=== PATIENT | female | born 1950 | race Caucasian/White ===

== ENCOUNTER 2016-11-10 06:10 | Inpatient (IN) | payer OTHER ==
[2016-11-07 16:58] LABS: Urine Bilirubin Negative (Negative); Urine Blood Negative /uL (Negative); Urine Color Yellow (Yellow); Urine Glucose Normal (Normal); Urine Ketone Negative (Negative); Urine Nitrite Negative (Negative); Urine RBC 1 /hpf (0 - 4); Urine Squamous Epithelial Cell FEW /hpf (<5); Urine Urobilinogen Normal (Negative); Urine pH 5.5 (5.0-8.0)
[2016-11-07 17:07] LABS: Basophils # (auto) 0 uL; Basophils % (auto) 0.4 % (0.0-2.0); CONDITION Y; Eosinophils # (auto) 0.1 uL; Hematocrit 40.4 % (36.0-46.0); Hemoglobin 13.6 g/dL (12.2-16.2); Lymphocytes # (auto) 2.3 uL; Lymphocytes % (auto) 27.6 % (10.0-50.0); Mean Corpuscular Hemoglobin 29.7 pg (28.0-32.0); Mean Corpuscular Hgb Conc. 33.7 g/dL (32.0-36.0); Mean Corpuscular Volume 87.9 fL (80.0-100.0); Mean Platelet Volume 9.4 fL (7.4-10.4); Monocytes # (auto) 0.6 uL; Monocytes % (auto) 7.4 % (0.0-12.0); Neutrophils # (auto) 5.3 uL; Neutrophils % (auto) 63.6 % (37.0-80.0); Platelet Count (auto) 337 10^3/uL (140-450); Red Cell Distribution Width 13.3 % (11.6-16.0); White Blood Cell 8.3 10^3/uL (4.4-10.8)
[2016-11-07 17:14] LABS: Albumin 3.9 g/dL (3.4-5.0); BUN/Creatinine Ratio 22.4; Bilirubin, Total 0.3 mg/dL (0.2-1.0); Calcium 9.6 mg/dL (8.5-10.1); Potassium 4.4 mmol/L (3.5-5.1); Total Protein 7.9 g/dL (6.4-8.2)
[2016-11-07 17:22] LABS: INR 0.94 (0.9-1.15); Partial Thromboplastin Time 25.2 sec (22.64-33.71); Prothrombin Time 10.2 sec (9.37-12.3)
[~2016-11-10] VITALS: Ht 165.1 cm; Wt 99.5 kg
[2016-11-10] MEDS ORDERED: ceFAZolin 1GM/50ML D5W 50 ML IV ONE (06:33)
[2016-11-10] MEDS: LIDOCAINE 1% HCL (LOCAL ANESTH.) INJ 20ML MDV ONE ×2 (07:00→10:25)
[2016-11-10] MEDS: BUPIVACAINE 0.25% INJ 50ML VIAL ONE ×2 (07:00→10:25)
[2016-11-10] MEDS ORDERED: LIDOCAINE 1% HCL (LOCAL ANESTH.) INJ 20ML MDV ONE ×2 (07:01→07:04)
[2016-11-10] MEDS ORDERED: MANNITOL FTV 25% 12.5 GM/50 ML 0 ML IV ONE (07:02)
[2016-11-10] MEDS ORDERED: MIDAZOLAM HCL 1MG/1ML-2 ML VIAL ONE (07:28)
[2016-11-10] MEDS ORDERED: METOPROLOL TARTRATE 1MG/1ML-5ML VIAL IV ONE (07:28)
[2016-11-10] MEDS ORDERED: ROCURONIUM 10MG/ML 10ML VIAL IV ONE (07:28)
[2016-11-10] MEDS ORDERED: ONDANSETRON HCL 4 MG/2 ML VIAL ONE (07:28)
[2016-11-10] MEDS ORDERED: fentaNYL CITRATE 100 MCG/2 ML VL ONE (07:28)
[2016-11-10] MEDS ORDERED: LIDOCAINE HCL 2 %PF INJ 10ML AMP IJ ONE (07:28)
[2016-11-10] MEDS ORDERED: DEXAMETHASONE SOD PHOS 10MG/1ML VIAL INJ ONE (07:28)
[2016-11-10] MEDS ORDERED: PROPOFOL 10 MG/ML 20 ML IV ONE (07:29)
[2016-11-10] MEDS ORDERED: HYDROmorphone HCL 2 MG/ML VL ONE ×2 (07:37→11:01)
[2016-11-10] MEDS: D5W/SOD CHL 0.45% 1,000 ML IV SCH ×2 (10:31→18:31)
[2016-11-10] MEDS ORDERED: ACETAMINOPHEN/CODEINE#3 (300/30mg) TAB PO PRN (10:45)
[2016-11-10] MEDS ORDERED: CEFOXITIN SODIUM 1 GM in D5W 5% 50 ML IV SCH (10:45)
[2016-11-10] MEDS ORDERED: diphenhdrAMINE HCL 50 MG/1 ML VL IV PRN (10:45)
[2016-11-10] MEDS: HYDROmorphone HCL 2 MG/ML VL IV PRN ×9 (11:09→23:54)
[2016-11-10 11:33] LABS: BUN/Creatinine Ratio 20.8; Calcium 8.8 mg/dL (8.5-10.1); Potassium 4.4 mmol/L (3.5-5.1)
[2016-11-10 13:00] VITALS: BP 117/76
[2016-11-10] MEDS ORDERED: HYDROmorphone HCL 2 MG/ML VL IV PRN (13:30)
[2016-11-10] MEDS: CEFOXITIN SODIUM 1 GM in D5W 5% 50 ML IV SCH ×2 (13:37→20:42)
[2016-11-10] MEDS: ONDANSETRON HCL 4 MG/2 ML VIAL IV PRN ×2 (13:37→18:31)
[2016-11-10] MEDS ORDERED: PERCOT PO (15:48)
[2016-11-10] MEDS ORDERED: BACL10TA PO (15:48)
[2016-11-10] MEDS ORDERED: TRAZ50TA2 PO (15:48)
[2016-11-10] MEDS ORDERED: METF-372 PO (15:48)
[2016-11-10] MEDS ORDERED: FLUO20CA19 PO (15:48)
[2016-11-10] MEDS ORDERED: GABA-339 PO (15:48)
[2016-11-10 17:00] VITALS: BP 153/85
[2016-11-10 22:00] VITALS: BP 119/59
[2016-11-11] MEDS: D5W/SOD CHL 0.45% 1,000 ML IV SCH ×2 (00:19→12:17)
[2016-11-11] MEDS: HYDROmorphone HCL 2 MG/ML VL IV PRN ×4 (02:53→15:52)
[2016-11-11] MEDS: CEFOXITIN SODIUM 1 GM in D5W 5% 50 ML IV SCH (03:46)
[2016-11-11 05:30] VITALS: BP 131/80
[2016-11-11 08:00] VITALS: BP 139/71
[2016-11-11 08:50] VITALS: BP 139/71
[2016-11-11 12:28] VITALS: BP 139/71
[2016-11-11 13:00] VITALS: BP 145/68
== END 2016-11-11 16:30 | disposition home or self-care (01) | DRG 658 ==
LOC: OVERFLOW 06:10 → EDSTATUS 07:00 → WEST WING 12:13
PROVIDERS: ADMIT Urology; ATTEND Internal Medicine Geriatric Medicine
PROC: 07BC4ZZ Excision of Pelvis Lymphatic, Percutaneous Endoscopic Approach (ICD-10-PCS; 2016-11-10)
PROC: 0TT04ZZ Resection of Right Kidney, Percutaneous Endoscopic Approach (ICD-10-PCS; principal; 2016-11-10 07:36)
DX: C64.1 Malignant neoplasm of right kidney, except renal pelvis (principal); E11.9 Type 2 diabetes mellitus without complications; F32.9 Major depressive disorder, single episode, unspecified; M79.7 Fibromyalgia; I10 Essential (primary) hypertension; E66.9 Obesity, unspecified; G25.81 Restless legs syndrome; M19.90 Unspecified osteoarthritis, unspecified site; Z82.49 Family history of ischemic heart disease and other diseases of the circulatory system; Z83.3 Family history of diabetes mellitus; Z87.891 Personal history of nicotine dependence; Z68.36 Body mass index [BMI] 36.0-36.9, adult
CPT/HCPCS: 36415; 80048; 80053; 81001; 82962; 85025; 85610; 85730; 86850; 86900; 86901; 87086; 87088; 87186; J0690; J1100; J2001; J2250; J2405; J2704; J3490; J7060